=== PATIENT | male | born 1945 | race Caucasian/White ===

== ENCOUNTER 2017-04-01 15:05 | Outpatient (RCR) | payer OTHER ==
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
--- NOTE | 2017-01-30 10:02 | RADIOLOGY IMAGING REPORT ---
FACILITY: [facility] [place] PATIENT NAME: Alireza Luciano : 1945 MR: [id number] V: [id number] EXAM DATE: ORDERING PHYSICIAN: NELLY DHALIWAL TECHNOLOGIST: Location: [facility] Patient: Alireza Luciano : 1945 Visit/Account:[id number] Date of Sevice: 01/30/2017 ORBITS FOREIGN BODY 1 VIEW HISTORY: Orbital views pre-MRI FINDINGS: No metal noted within the orbits. Sinuses are clear. Bony structures unremarkable IMPRESSION: 1. Negative orbital views. Report Dictated By: Law Mcgrath MD at 01/30/2017 9:56 AM Report E-Signed By: Law Mcgrath MD at 01/30/2017 9:58 AM WSN:[id number]
--- NOTE | 2017-01-30 15:24 | RADIOLOGY IMAGING REPORT ---
FACILITY: [facility] [place] PATIENT NAME: Alireza Luciano : 1945 MR: [id number] V: [id number] EXAM DATE: ORDERING PHYSICIAN: NELLY DHALIWAL TECHNOLOGIST: Location: [facility] Patient: Alireza Luciano : 1945 Visit/Account:[id number] Date of Sevice: 01/30/2017 EXAMINATION: MRI pelvis without MRI pelvis with IV contrast 01/30/2017 8:48 AM HISTORY: Prostate cancer TECHNIQUE: Multiplanar multisequence imaging of the pelvis was done before and after intravenous cont rast. This study is done without the endorectal coil or 3T magnet. Contrast: 15 mL of IV MultiHance COMPARISON STUDIES: CT abdomen and pelvis 01/09/2017 FINDINGS: Prostate and seminal vesicles: Evaluation for prostate cancer is limited by the coil strength for thi s machine and lack of endorectal coil as well as artifact from indwelling right hip replacement. BPH is present centrally. There is a small focus in the lower posterolateral transitional zone on the l eft which does show to enhancement and potentially increased diffusion weighted and diminished ADC si gnal, although technically this study is not adequate for a true PIRADS determination. No other pote ntial primary prostate malignancy is evident. Certainly, if the small focus is cancer this study cota s not show any clear evidence of extracapsular spread. Seminal vesicles are unremarkable. Bowel / mesenteries: Diverticulosis of the colon. Bladder: Bladder floor is elevated by the prominent prostate. No intrinsic finding otherwise. Bones: Normal marrow signal and enhancement. No osseous metastatic focus evident. There is artifact from indwelling radiopaque placement. Small bilateral fatty hernias. Vascular structures: negative. Other: none significant. LN assessment: negative. IMPRESSION: 1. Although this is technically not an adequate study for primary prostate cancer assessment there p otentially is a small focus in the left posterior transitional zone. 2. No evidence of metastatic disease in the pelvis. Report Dictated By: Prem Marcano MD at 01/30/2017 3:03 PM Report E-Signed By: Prem Marcano MD at 01/30/2017 3:20 PM WSN:[id number]
[~2017-04-01 15:05] MED LIST: ASPI-1471 PO; CALC625T80 PO; CEPH-13 PO; FAMO20TA28 PO; GADOBENATE 529MG/1ML 15ML VIAL IVP ONE; HYDR-389 PO; HYDR12.561 PO; IBUP-1671 PO; IBUP800T37 PO; LEVO-85 PO; LISI5TAB25 PO; LOR5/325 PO; MULT-1335 PO; OXYC-865 PO; OXYC-869 PO; POTA99TA10 PO; PRAV20TA65 PO; VENL75TA12 PO
[2017-04-01 15:24] VITALS: BP 139/81
== END 2017-04-19 ==
LOC: ONC 15:05
PROVIDERS: ATTEND Radiology Radiation Oncology
DX: Z51.0 Encounter for antineoplastic radiation therapy (principal); C61 Malignant neoplasm of prostate; I25.10 Atherosclerotic heart disease of native coronary artery without angina pectoris; Z85.828 Personal history of other malignant neoplasm of skin; E78.00 Pure hypercholesterolemia, unspecified; I10 Essential (primary) hypertension; E66.9 Obesity, unspecified; M06.9 Rheumatoid arthritis, unspecified; D75.1 Secondary polycythemia
CPT/HCPCS: 70030; 72197; 77290; A9577; 77280; 77336 ×2; 77385 ×15; 77300; 77301; 77338

== ENCOUNTER 2017-05-29 11:19 | Outpatient (RCR) | payer OTHER ==
[~2017-05-29 11:19] MED LIST changes: -GADOBENATE 529MG/1ML 15ML VIAL IVP ONE
== END 2017-07-19 ==
LOC: RAON 11:19
PROVIDERS: ATTEND Radiology Radiation Oncology
DX: Z51.0 Encounter for antineoplastic radiation therapy (principal); C61 Malignant neoplasm of prostate; I25.810 Atherosclerosis of coronary artery bypass graft(s) without angina pectoris; Z85.828 Personal history of other malignant neoplasm of skin; E78.00 Pure hypercholesterolemia, unspecified; I10 Essential (primary) hypertension; E66.9 Obesity, unspecified; D75.1 Secondary polycythemia; M06.9 Rheumatoid arthritis, unspecified; Z87.891 Personal history of nicotine dependence; R19.7 Diarrhea, unspecified; R35.0 Frequency of micturition; R53.83 Other fatigue
CPT/HCPCS: 77280; 77290; 77300; 77301; 77336; 77338; 77385